=== PATIENT | female | born 1960 | race Caucasian/White ===

== ENCOUNTER 2016-07-22 09:19 | Emergency (ER) | payer MEDICARE, MEDICAID ==
[~2016-07-22] VITALS: Ht 157.5 cm; Wt 61.3 kg
[2016-07-22] MEDS ORDERED: ASPI-556 PO (09:33)
[2016-07-22] MEDS ORDERED: IBUP-1547 PO (09:33)
[2016-07-22] MEDS ORDERED: HYDR25TA PO (09:33)
[2016-07-22] MEDS ORDERED: RISP4 PO (09:33)
[2016-07-22] MEDS ORDERED: BENA20 PO (09:33)
[2016-07-22] MEDS ORDERED: ARIP2 PO (09:33)
[2016-07-22] MEDS ORDERED: AMIT10TA6 PO (09:33)
[2016-07-22] MEDS ORDERED: ALBU8HFA IH (09:38)
[2016-07-22] MEDS ORDERED: CefTRIAXone SODIUM 1 GM/VIAL IM ONE (10:15)
[2016-07-22] MEDS ORDERED: KETOROLAC TROMETHAMINE 60 MG/2 ML VIAL IM ONE (10:15)
[2016-07-22] MEDS ORDERED: LIDOCAINE HCL/PF 1% 2 ML VIAL IM ONE (10:15)
[2016-07-22 10:35] VITALS: BP 110/65
== END 2016-07-22 11:00 | disposition home or self-care (01) ==
LOC: EMS 09:21
DX: H66.92 Otitis media, unspecified, left ear (principal); J44.9 Chronic obstructive pulmonary disease, unspecified; I10 Essential (primary) hypertension; F17.210 Nicotine dependence, cigarettes, uncomplicated; Z79.82 Long term (current) use of aspirin; Z88.0 Allergy status to penicillin
CPT/HCPCS: 96372; 99284; J0696; J1885; J3490

== ENCOUNTER 2016-07-27 09:28 | Emergency (ER) | payer MEDICARE, MEDICAID ==
[~2016-07-27] VITALS: Ht 157.5 cm; Wt 61.4 kg
[~2016-07-27 09:28] MED LIST: ALBU8HFA IH; AMIT10TA6 PO; ARIP2 PO; ASPI-556 PO; BENA20 PO; HYDR25TA PO; IBUP-1547 PO; RISP4 PO
[2016-07-27] MEDS ORDERED: AZIT250T6 PO (09:54)
[2016-07-27 11:39] VITALS: BP 136/92
== END 2016-07-27 11:41 | disposition home or self-care (01) ==
LOC: EMS 09:31
DX: H60.92 Unspecified otitis externa, left ear (principal); J44.9 Chronic obstructive pulmonary disease, unspecified; I10 Essential (primary) hypertension; F17.210 Nicotine dependence, cigarettes, uncomplicated; Z88.0 Allergy status to penicillin
CPT/HCPCS: 99283